=== PATIENT | female | born 1980 | race Caucasian/White ===

== ENCOUNTER 2016-11-03 10:48 | Outpatient (CLI) | payer OTHER ==
[2016-11-03 11:29] LABS: Bilirubin Negative (Negative); Blood, Urine Negative (Negative); Clarity Hazy (Clear); Glucose, Urine (Dipstick) Negative (Negative); Leukocyte Negative (Negative); Nitrite Negative (Negative); Protein, Urine (Dipstick) Negative (Neg-Trace); RBC/HPF 0-3 HPF (0-3); Specific Gravity, Urine 1.015 (1.005-1.030); Urobilinogen 0.2 mg/dL (0.2-1.0); WBC/HPF 0-3 HPF (0-3); pH, Urine 7.5 (5.0-9.0)
[2016-11-03 11:30] LABS: Bacteria/HPF Rare-Few HPF (None Seen)
== END 2016-11-03 10:49 | disposition home or self-care (01) ==
LOC: MADLABBHPM 10:48
PROVIDERS: ATTEND Family Medicine
DX: R30.0 Dysuria (principal)
CPT/HCPCS: 36415; 81001; 87086

== ENCOUNTER 2020-11-27 13:24 | Emergency (ER) | payer BC, OTHER | END 2020-11-27 14:44 | disposition home or self-care (01) | LOC: MADERS 13:24 | DX: H65.93 Unspecified nonsuppurative otitis media, bilateral (principal); J32.9 Chronic sinusitis, unspecified; K58.9 Irritable bowel syndrome, unspecified | CPT/HCPCS: 99283 ==